=== PATIENT | male | born 1985 | race African-American/Black ===

== ENCOUNTER 2020-02-04 14:00 | Emergency (ER) | payer BC ==
[~2020-02-04] VITALS: Ht 177.8 cm; Wt 109.5 kg
[2020-02-04 14:11] VITALS: BP 180/90
== END 2020-02-04 15:33 | disposition home or self-care (01) ==
LOC: ED 14:26
DX: J00 Acute nasopharyngitis [common cold] (principal); Z87.891 Personal history of nicotine dependence
CPT/HCPCS: 71045; 99283